=== PATIENT | female | born 1940 | race Caucasian/White ===

== ENCOUNTER → 2017-12-22 | Outpatient (CLI) | payer BC | END | disposition home or self-care (01) | LOC: KCIC DEXA 13:30 | DX: Z12.31 Encounter for screening mammogram for malignant neoplasm of breast (principal); Z13.820 Encounter for screening for osteoporosis; N63.10 Unspecified lump in the right breast, unspecified quadrant; M85.88 Other specified disorders of bone density and structure, other site; Z78.0 Asymptomatic menopausal state | CPT/HCPCS: 77063; 77067; 77080 ==

== ENCOUNTER → 2017-12-27 | Outpatient (CLI) | payer BC | END | disposition home or self-care (01) | LOC: KCIC US 12:41 | DX: N63.10 Unspecified lump in the right breast, unspecified quadrant (principal) | CPT/HCPCS: 76641 ==

== ENCOUNTER → 2019-05-01 | Outpatient (CLI) | payer BC ==
[2016-05-31 15:07] VITALS: BP 152/80
[~2019-05-01] MED LIST: ALPR0.25 PO; CYCL5TAB PO; HYDR-2765 PO; LOSA1TAB25 PO; MULT-650 PO; VITA400C36 PO
--- NOTE | 2019-05-01 17:22 | KCIC ---
Bilateral digital screening mammograms with 3-D tomosynthesis: Reason for examination: Routine screening. Comparison is made to previous study dated 12/22/2017. Bilateral mammograms in CC and oblique projections were obtained with 2-D imaging and 3-D tomosynthesis imaging on a Siemens Inspiration unit and reviewed on the workstation. Interpretation was made with the benefit of CAD. The skin and nipples show no abnormalities. No abnormal axillary lymph nodes are seen. The breast parenchyma shows scattered fatty and fibroglandular density. (Breast density: Category B.) There continues to be a small nodular parenchymal density at the 8:00 B position of the right breast which is unchanged. There are no new dominant masses, suspicious calcifications or architectural distortion. Benign calcifications are present. Impression: No evidence of malignancy. Recommend routine screening. BI-RAD Category 2: Benign. "Our facility is accredited by the [employer] Mammography [employer]." This patient's information has been entered into a reminder system for the patient to be notified with the results of her examination and a target date for the next mammogram. Electronically signed by: Yuly Tariq MD (05/01/2019 5:19 PM) [id number]
== END | disposition home or self-care (01) ==
LOC: KCIC MAMMO 09:34
PROVIDERS: ATTEND Family Medicine
DX: Z12.31 Encounter for screening mammogram for malignant neoplasm of breast (principal); N64.89 Other specified disorders of breast
CPT/HCPCS: 77063; 77067

== ENCOUNTER 2020-08-27 11:30 | Emergency (ER) | payer BC ==
[~2020-08-27] VITALS: Ht 160 cm; Wt 59.0 kg
[~2020-08-27 11:30] MED LIST changes: +VITA-8 PO; -VITA400C36 PO
[2020-08-27 12:24] VITALS: BP 114/74
--- NOTE | 2020-08-27 13:06 | PHYS DOC ---
Past Medical History Past Medical History: Hypertension (MARITZA SWARTZ APRN) Past Surgical History: No Surgical History (MARITZA SWARTZ APRN) Smoking Status: Never Smoker Alcohol Use: None Drug Use: None (MARITZA SWARTZ APRN) General Adult EDM: Chief Complaint: WRIST PAIN HPI: HPI: Patient is a 80 year old female who presents with states at 1030 this morning she tripped and fell with her right arm extended out in front of her. She now has right wrist and lower forearm pain. She states she took ibuprofen at this time. She rates her pain a 5 out of 10. She denies numbness or tingling. She sees Dr. Mijares for an orthopedic doctor. Her history is hypertension. (MARITZA SWARTZ APRN) Review of Systems: Review of Systems: Constitutional: Denies fever or chills. [] Eyes: Denies change in visual acuity. [] HENT: Denies nasal congestion or sore throat. [] Respiratory: Denies cough or shortness of breath. [] Cardiovascular: Denies chest pain or + right wrist edema. [] GI: Denies abdominal pain, nausea, vomiting, bloody stools or diarrhea. [] : Denies dysuria. [] Musculoskeletal: Denies back pain. +Right wrist joint pain. [] Integument: Denies rash. [] Neurologic: Denies headache, focal weakness or sensory changes. [] Endocrine: Denies polyuria or polydipsia. [] Lymphatic: Denies swollen glands. [] Psychiatric: Denies depression or anxiety. [] (MARITZA SWARTZ APRN) Heart Score: Risk Factors: Risk Factors: DM, Current or recent (<one month) smoker, HTN, HLP, family history of CAD, obesity. Risk Scores: Score 0 - 3: 2.5% MACE over next 6 weeks - Discharge Home Score 4 - 6: 20.3% MACE over next 6 weeks - Admit for Clinical Observation Score 7 - 10: 72.7% MACE over next 6 weeks - Early Invasive Strategies (MARITZA SWARTZ APRN) Allergies: Allergies: Allergies Coded Allergies Type Severity Reaction Last Updated Verified Sulfa (Sulfonamide Antibiotics) Allergy Unknown 01/08/16 Yes (MARITZA SWARTZ APRN) Physical Exam: PE: Constitutional: Well developed, well nourished, no acute distress, non-toxic appearance. [] HENT: Normocephalic, atraumatic, bilateral external ears normal, oropharynx moist, no oral exudates, nose normal. [] Eyes: PERRLA, EOMI, conjunctiva normal, no discharge. [] Neck: Normal range of motion, no tenderness, supple, no stridor. [] Cardiovascular:Heart rate regular rhythm, no murmur [] Lungs & Thorax: Bilateral breath sounds clear to auscultation [] Abdomen: Bowel sounds normal, soft, no tenderness, no masses, no pulsatile masses. [] Skin: Warm, dry, no erythema, no rash. [] Back: No tenderness, no CVA tenderness. [] Extremities: Right dorsal radial side and posterior wrist and hand tenderness, no cyanosis, no clubbing, Right wrist not ROM intact due to pain, 2+ edema. [] Neurologic: Alert and oriented X 3, normal motor function, normal sensory function, no focal deficits noted. [] Psychologic: Affect normal, judgement normal, mood normal. [] (MARITZA SWARTZ APRN) Current Patient Data: Vital Signs: Vital Signs Date Time Temp Pulse Resp B/P (MAP) Pulse Ox O2 Delivery O2 Flow Rate FiO2 08/27/20 12:24 97.5 74 18 114/74 (87) 99 Room Air 97.5 (MARITZA SWARTZ APRN) EKG: EKG: [] (MARITZA SWARTZ APRN) Radiology/Procedures: Radiology/Procedures: [] Impression: [facility] [address] [place] [address] IMAGING REPORT Signed PATIENT: SUZETTE VIDES ACCOUNT: [id number] : 1940 LOCATION: ER AGE: 80 SEX: F EXAM STATUS: REG ER ORD. PHYSICIAN: MARITZA SWARTZ APRN REASON: pain, fall PROCEDURE: WRIST 3V RIGHT 3 views right hand and 3 views right wrist HISTORY: Pain status post fall AP lateral oblique views 3 views right hand: There is marked degenerative changes consistent with osteoarthrosis. There is no lytic destructive changes. 3 views right wrist: There is a comminuted nondisplaced fractures the distal radius. The remaining visualized osseous structures appear grossly intact. There is marked degenerative changes of the lateral wrist. IMPRESSION: Acute comminuted nondisplaced fracture of the distal radius. Electronically signed by: Wali Ferrara III, MD (08/27/2020 1:17 PM) [facility] DICTATED and SIGNED BY: WALI FERRARA III, MD DATE: 08/27/201316 (MARITZA SWARTZ APRN) Course & Med Decision Making: Course & Med Decision Making Pertinent Labs and Imaging studies reviewed. (See chart for details) Patient denies hitting her head or syncope. She denies elbow pain and has full range of motion of her elbow and there is no swelling deformity. Patient has some 2+ swelling and slight bruising to the dorsal radial side of her wrist and hand. Patient can make a fist but is painful to the wrist. Patient states that she cannot move her wrist due to pain. There is no joint laxity. Cap refills less than 2 seconds. Radial pulses strong and intact. She can wiggle all of her fingers. Tenderness to the dorsal radial wrist and posterior wrist palpation. Rates her sharp shooting right wrist pain a 5 out of 10. No focal bony spinal tenderness. Full range of motion of her neck. Denies neck, back or head pain. Denies any dizziness. Denies chest pain or Shortness of breath. IMPRESSION: Acute comminuted nondisplaced fracture of the distal radius. Patient is placed in a radial gutter short arm splint. Patient to follow-up with Dr. Mijares soon as possible. Splint assessment: Neurovascularly intact post splint replacement with good fit. Patient's extremity symptoms have stabilized well they have been evaluated in the department and are appropriate for outpatient follow-up. No evidence of compartment syndrome, neurologic injury, vascular injury, open joint, open fracture, tendon laceration, or foreign body. [] (MARITZA SWARTZ APRN) Dragon Disclaimer: Dragon Disclaimer: This electronic medical record was generated, in whole or in part, using a voice recognition dictation system. (MARITZA SWARTZ APRN) Departure Departure Impression: Primary Impression: Distal radius fracture, right Qualified Codes: S52.501A - Unspecified fracture of the lower end of right radius, initial encounter for closed fracture Referrals: PEBBLES SULLIVAN MD (PCP) ANN MIJARES MD Patient Instructions: Radial Fracture Additional Instructions: Follow-up with Dr. Mijares as soon as possible. Use ice and elevation to help with pain and swelling. Also take ibuprofen for your pain. Scripts Hydrocodone/Apap 5-325 (NORCO 5-325 TABLET) 1 Each Tablet 1 TAB PO PRN Q6HRS PRN for PAIN, #5 TAB 0 Refills Prov: MARITZA SWARTZ APRN 08/27/20 Attending Signature Attending Signature I have reviewed the PA/CARRIAGE OPERATOR's note and plan of care. I was available for consultation as needed during the patient's visit in the emergency department. I agree with the clinical impression, plan, and disposition. (SHARATH WHITMAN DO) MARITZA SWARTZ APRN Aug 27, 2020 13:06 SHARATH WHITMAN DO Aug 27, 2020 14:33
--- NOTE | 2020-08-27 13:20 | RAD ---
3 views right hand and 3 views right wrist HISTORY: Pain status post fall AP lateral oblique views 3 views right hand: There is marked degenerative changes consistent with osteoarthrosis. There is no lytic destructive changes. 3 views right wrist: There is a comminuted nondisplaced fractures the distal radius. The remaining visualized osseous structures appear grossly intact. There is marked degenerative changes of the lateral wrist. IMPRESSION: Acute comminuted nondisplaced fracture of the distal radius. Electronically signed by: Jones Patricia III, MD (08/27/2020 1:17 PM) [facility]
[2020-08-27] MEDS ORDERED: HYDR-3164 PO (13:34)
== END 2020-08-27 19:17 | disposition home or self-care (01) ==
LOC: ER 11:30
DX: S52.501A Unspecified fracture of the lower end of right radius, initial encounter for closed fracture (principal); M79.631 Pain in right forearm; I10 Essential (primary) hypertension; Z88.2 Allergy status to sulfonamides; W01.0XXA Fall on same level from slipping, tripping and stumbling without subsequent striking against object, initial encounter; Y93.89 Activity, other specified; Y92.89 Other specified places as the place of occurrence of the external cause; Y99.8 Other external cause status
CPT/HCPCS: 29125; 73110; 73130; 99283; 99284

== ENCOUNTER → 2021-09-17 | Outpatient (CLI) | payer BC ==
[~2021-09-17] MED LIST changes: +HYDR-3164 PO
--- NOTE | 2021-09-17 11:37 | KCIC ---
Bilateral digital screening mammograms with 3-D tomosynthesis: Reason for examination: Routine screening. Comparison is made to previous studies dated 05/01/2019 and 12/22/2017. Bilateral mammograms in CC and oblique projections were obtained with 2-D imaging and 3-D tomosynthes is imaging on a Siemens Inspiration unit and reviewed on the workstation. Interpretation was made wit erik the benefit of CAD. The skin and nipples show no abnormalities. No abnormal axillary lymph nodes are seen. The breast par enchyma shows scattered fatty and fibroglandular density. (Breast density: Category B.) There continu es to be a small nodule at the 6:00 B position of the right breast which is stable. There are no new dominant masses, suspicious calcifications or architectural distortion. Benign calcifications are pre sent. Impression: No evidence of malignancy. Recommend routine screening. BI-RAD Category 2: Benign. "Our facility is accredited by the [employer] Mammography Program." This patient's information has been entered into a reminder system for the patient to be notified wit h the results of her examination and a target date for the next mammogram. Electronically signed by: Yuly Tariq MD (09/17/2021 11:35 AM) [email or web address]
== END ==
LOC: KCIC MAMMO 08:51
PROVIDERS: ATTEND Family Medicine
DX: Z12.31 Encounter for screening mammogram for malignant neoplasm of breast (principal); R92.1 Mammographic calcification found on diagnostic imaging of breast
CPT/HCPCS: 77063; 77067